=== PATIENT | male | born 1955 | race Caucasian/White ===

== ENCOUNTER 2017-09-30 17:41 | Emergency (ER) | payer MEDICARE, OTHER ==
[~2017-09-30] VITALS: Ht 180.3 cm; Wt 120.0 kg
[2017-09-30 18:01] VITALS: BP 118/61
[2017-09-30 18:20] LABS: HEMATOCRIT 37.4 % (39.2-51.8); HEMOGLOBIN 12.9 g/dL (13.7-18.0); WHITE BLOOD COUNT 5.2 x10^3/uL (3.4-10)
[2017-09-30 18:32] LABS: ASPARTATE AMINO TRANSFERASE 17 U/L (15-37); BLOOD UREA NITROGEN 14 mg/dL (7-18)
[2017-09-30 18:36] LABS: ACETAMINOPHEN < 2 mcg/mL (10-30)
[2017-09-30 18:58] LABS: DAU SCREEN DISCLAIMER
[2017-09-30] MEDS ORDERED: INSULIN REGULAR 100 UNITS/ML, 3ML VIAL SQ-INSULIN ONE (19:00)
[2017-09-30] MEDS ORDERED: INSULIN REGULAR 100 UNITS/ML, 3ML VIAL ONE (19:10)
[2017-09-30] MEDS ORDERED: FURO20TA3 PO (19:42)
[2017-09-30] MEDS ORDERED: ATOR40TA78 PO (19:42)
[2017-09-30] MEDS ORDERED: RANI-276 PO (19:42)
[2017-09-30] MEDS ORDERED: ASPI-496 PO (19:43)
[2017-09-30] MEDS ORDERED: CARV40CP PO (19:43)
[2017-09-30] MEDS ORDERED: LISI40TA PO (19:43)
[2017-09-30] MEDS ORDERED: METF850T2 PO (19:43)
[2017-09-30] MEDS ORDERED: HUM100VI6 SQ (19:43)
[2017-09-30] MEDS ORDERED: INSU100V8 SQ (19:43)
== END 2017-09-30 21:10 | disposition home or self-care (01) ==
LOC: ED 18:45
DX: F20.3 Undifferentiated schizophrenia (principal); I10 Essential (primary) hypertension; E11.9 Type 2 diabetes mellitus without complications; E78.00 Pure hypercholesterolemia, unspecified; I25.2 Old myocardial infarction; K21.9 Gastro-esophageal reflux disease without esophagitis
CPT/HCPCS: 36415; 71010; 80053; 80307; 80329; 85025; 96372; G0479; G0480

== ENCOUNTER 2017-10-10 17:10 | Emergency (ER) | payer OTHER ==
[~2017-10-10] VITALS: Ht 177.8 cm; Wt 120.3 kg
[~2017-10-10 17:10] MED LIST: ASPI-496 PO; ATOR40TA78 PO; CARV40CP PO; FURO20TA3 PO; HUM100VI6 SQ; INSU100V8 SQ; LISI40TA PO; METF850T2 PO; RANI-276 PO
[2017-10-10 18:13] LABS: HEMATOCRIT 45.9 % (39.2-51.8); HEMOGLOBIN 15.8 g/dL (13.7-18.0); WHITE BLOOD COUNT 14.5 x10^3/uL (3.4-10)
[2017-10-10 18:24] LABS: BLOOD UREA NITROGEN 20 mg/dL (7-18)
[2017-10-10 18:24] LABS: DAU SCREEN DISCLAIMER
[2017-10-10 18:25] LABS: ACETAMINOPHEN < 2 mcg/mL (10-30)
[2017-10-10 20:54] VITALS: BP 139/74
== END 2017-10-10 20:57 | disposition home or self-care (01) ==
LOC: ED 20:51
DX: F32.9 Major depressive disorder, single episode, unspecified (principal); F20.9 Schizophrenia, unspecified; E78.00 Pure hypercholesterolemia, unspecified; E11.9 Type 2 diabetes mellitus without complications; I10 Essential (primary) hypertension; F17.210 Nicotine dependence, cigarettes, uncomplicated; I25.2 Old myocardial infarction
CPT/HCPCS: 36415; 71020; 80048; 80307; 80329; 82040; 85025; 99285; G0479; G0480